=== PATIENT | male | born 1965 | race Caucasian/White ===

== ENCOUNTER 2022-05-19 17:38 | Emergency (ER) | payer OTHER ==
[~2022-05-19] VITALS: Ht 182.9 cm; Wt 83.9 kg
[2022-05-19] MEDS ORDERED: KETOROLAC TROMETHAMINE INJ 30 MG/ML VIAL IM ONE (19:30)
[2022-05-19] MEDS ORDERED: KETOROLAC TROMETHAMINE INJ 30 MG/ML VIAL ONE (19:31)
[2022-05-19 20:00] VITALS: BP 149/88
--- NOTE | 2022-05-19 20:15 | NUR ---
Patient discharged to home in stable condition. Written and verbal after care instructions given. Patient verbalizes understanding of instruction.
[2022-05-19] MEDS ORDERED: SULF1TAB48 PO (20:35)
== END 2022-05-19 20:30 | disposition home or self-care (01) ==
LOC: ER 17:45
DX: R10.2 Pelvic and perineal pain (principal); L03.311 Cellulitis of abdominal wall; I10 Essential (primary) hypertension; Z60.2 Problems related to living alone; Z79.899 Other long term (current) drug therapy
CPT/HCPCS: 99284; 74176; 96372; J1885